=== PATIENT | male | born 1990 | race Caucasian/White ===

== ENCOUNTER 2021-08-21 19:12 | Emergency (ER) | payer OTHER ==
--- NOTE | 2021-08-21 19:42 | EDM.PDOC ---
ED HPI GENERAL MEDICAL PROBLEM - General Chief Complaint: Lower Extremity Injury/Pain Stated Complaint: POSSIBLE BROKEN RT TOE Time Seen by Provider: 08/21/21 19:29 Source of Information: Reports: Patient History Limitations: Reports: No Limitations - History of Present Illness INITIAL COMMENTS - FREE TEXT/NARRATIVE: Patient is a 31-year-old male presents today for right second toe injury. He dropped a couple mud onto his foot. Patient was able to continue working the rest of the day and ambulate on it but when he took his shoe off at the end of the day he saw that his toe was severely bruised and hurts whenever he moves it. He denies any other injuries to his foot currently denies too much pain denies any other associated symptoms. Right Foot Pain Score (Numeric/FACES): 6 - Related Data Allergies Allergy/AdvReac Type Severity Reaction Status Date / Time No Known Allergies Allergy Verified 08/21/21 19:38 Home Meds: Home Meds . [No Known Home Meds] 08/21/21 [History] Review of Systems - Review of Systems Review Of Systems: See Below Constitutional: Reports: No Symptoms Eyes: Reports: No Symptoms Ears: Reports: No Symptoms Nose: Reports: No Symptoms Mouth/Throat: Reports: No Symptoms Respiratory: Reports: No Symptoms Cardiovascular: Reports: No Symptoms GI/Abdominal: Reports: No Symptoms Genitourinary: Reports: No Symptoms Musculoskeletal: Reports: Foot Pain Skin: Reports: No Symptoms Neurological: Reports: No Symptoms Psychiatric: Reports: No Symptoms ED EXAM, GENERAL - Physical Exam Exam: See Below Exam Limited By: No Limitations General Appearance: Alert, WD/WN, No Apparent Distress Ears: Normal External Exam Nose: Normal Inspection Throat/Mouth: Normal Inspection Head: Atraumatic Neck: Normal Inspection Respiratory/Chest: No Respiratory Distress Peripheral Pulses: 2+: Dorsalis Pedis (R) Extremities: Normal Range of Motion. No: Normal Inspection (Is into the right second toe), Non-Tender (Right second toe) Neurological: Alert, Oriented, Normal Cognition, Normal Gait Psychiatric: Normal Affect Course - Vital Signs Last Recorded V/S: Last Vital Signs Temp 97.2 F 08/21/21 19:34 Pulse 94 08/21/21 19:34 Resp 20 08/21/21 19:34 BP 129/86 08/21/21 19:34 Pulse Ox 97 08/21/21 19:34 - Orders/Labs/Meds Orders: Active Orders 24 hr Category Date Time Status Acetaminophen [TylenoL] Med 08/21/21 20:46 Once 650 mg PO NOW ONE - Re-Assessments/Exams Free Text/Narrative Re-Assessment/Exam: 08/21/21 20:47 She has a fracture of the second toe with tuft fracture. We dottie tape them together. Patient is neurovascularly intact. Patient will be discharged home he scheduled to leave Friday and will follow up with Ortho in his area. Departure - Departure Time of Disposition: 20:47 Disposition: Home, Self-Care 01 Condition: Good Clinical Impression: Fracture of distal phalanx of toe - Discharge Information *PRESCRIPTION DRUG MONITORING PROGRAM REVIEWED*: Not Applicable *COPY OF PRESCRIPTION DRUG MONITORING REPORT IN PATIENT CHRIS: Not Applicable Instructions: Toe Fracture, [id number] Referrals: PCP,None [Primary Care Provider] - Forms: ED Department Discharge Additional Instructions: The following information is given to patients seen in the emergency department who are being discharged to home. This information is to outline your options for follow-up care. We provide all patients seen in our emergency department with a follow-up referral. The need for follow-up, as well as the timing and circumstances, are variable depending upon the specifics of your emergency department visit. If you don't have a primary care physician on staff, we will provide you with a referral. We always advise you to contact your personal physician following an emergency department visit to inform them of the circumstance of the visit and for follow-up with them and/or the need for any referrals to a consulting specialist. The emergency department will also refer you to a specialist when appropriate. This referral assures that you have the opportunity for follow-up care with a specialist. All of these measure are taken in an effort to provide you with optimal care, which includes your follow-up. Under all circumstances we always encourage you to contact your private physician who remains a resource for coordinating your care. When calling for follow-up care, please make the office aware that this follow-up is from your recent emergency room visit. If for any reason you are refused follow-up, please contact the [facility] Emergency Department at and asked to speak to the emergency department charge nurse. Please follow up with your primary care physician. If you do not have a primary care physician, see below: [facility] - Orthopedic Clinic Professional Building [address] [place] [address], [address] [place] [address] Orthopedic Surgery [place] [id number] [place] [address] [address] You were seen today for pain to your right foot you are found to have a fracture of your second toe. You will need to continue to dottie tape it for the next 2 weeks. We have attached report you can follow-up with Ortho doctor when you return home next week. If you have any other concerning signs or symptoms please feel free to return to the ED. Sepsis Event Note (ED) - Evaluation Sepsis Screening Result: No Definite Risk - Focused Exam Vital Signs: Vital Signs Temp Pulse Resp BP Pulse Ox 08/21/21 19:34 97.2 F 94 20 129/86 97 - My Orders Last 24 Hours: My Active Orders 08/21/21 20:46 Acetaminophen [TylenoL] 650 mg PO NOW ONE - Assessment/Plan Last 24 Hours: My Active Orders 08/21/21 20:46 Acetaminophen [TylenoL] 650 mg PO NOW ONE Plan: Patient is a 31-year-old male presents today for right second toe injury. Dropped the top mother into the toe. The toe has some discoloration on exam. Will obtain x-rays and reassess.
--- NOTE | 2021-08-21 20:33 | CR ---
INDICATION: Second digit injury. TECHNIQUE: Right foot, two views. COMPARISON: None FINDINGS: On AP view, there is a subtle transverse fracture involving terminal tuft of the right 2nd distal phalanx with adjacent soft tissue swelling. No additional fracture. Bony mineralization of the right foot normal. No radiopaque soft tissue foreign bodies. IMPRESSION: 1. Acute fracture, terminal tuft of right 2nd distal phalanx. Dictated by Suresh Adrian MD @ 08/21/2021 8:32:56 PM (Electronically Signed)
[2021-08-21] MEDS ORDERED: Acetaminophen 325 MG Tab PO ONE (20:46)
== END 2021-08-21 21:07 | disposition home or self-care (01) ==
LOC: MW.ED 19:12
DX: S92.531A Displaced fracture of distal phalanx of right lesser toe(s), initial encounter for closed fracture (principal); W20.8XXA Other cause of strike by thrown, projected or falling object, initial encounter
CPT/HCPCS: 73620; 99283; A9270